=== PATIENT | male | born 1995 | race African-American/Black ===

== ENCOUNTER 2017-09-02 22:34 | Emergency (ER) | payer BC, SELFPAY ==
[2017-09-02 22:35] VITALS: BP 137/76; PULSE 84; RESP 16; TEMP 37.1; O2SAT 98; BMI 31.7
[2017-09-02] MEDS: Diphth,Pertuss(Acell),Tet Vac 0.5 ML Vial IM (23:13)
--- NOTE | 2017-09-02 23:38 | ED.VISSUMM ---
- ER Visit Summary Date of Service: 09/02/17 Chief Complaint: Left third finger laceration History of Present Illness: The patient is a 21 M who cut his left third finger on a knife while doing dishes. He is right-hand dominant. He is unsure of his last tetanus update. Physical Examination: Signs unremarkable. Physical examination significant for left upper extremity which reveals a 2 similar flap laceration over the distal left third finger. He has full range of motion, normal sensation, normal cap refill. Test Results: [] Emergency Department Course and Treatment: Digital block is performed with 3 cc 1% lidocaine. Wound was thoroughly cleansed and irrigated. 5 simple interrupted sutures of 5-0 nylon are placed with good approximation. Wound is cleansed and dressed. Wound care is discussed. Tetanus update is provided. Treatment Plan: [] Disposition: Discharge Impression: Left third finger laceration status post suture This note was generated with [employer] dictation software. It may contain incorrect words, spelling, and punctuation that were not noted in review of the chart prior to signing ED Disposition - Plan for ED Patient: Disposition: Home or Assisted Living Chief Complaint: Laceration Instructions: ED Laceration Hand Referrals: Delphine Baker MD [STAFF PHYSICIAN] - 7 Days for suture removal
[2017-09-03 00:10] VITALS: BP 108/67; PULSE 72; RESP 17; O2SAT 98
--- NOTE | 2017-09-03 00:10 | ED.RN ---
DISCHARGE INSTRUCTIONS GIVEN TO AND REVIEWED WITH PATIENT, PATIENT DENIES QUESTIONS OR CONCERNS AND VOICES UNDERSTANDING OF DISCHARGE INSTRUCTIONS. PT AMBULATES OUT OF ROOM WITHOUT DIFFICULTY.
== END 2017-09-03 00:10 | disposition home or self-care (01) ==
PROVIDERS: Emergency Provider Emergency Medicine
DX: S61.213A Laceration without foreign body of left middle finger without damage to nail, initial encounter (principal); Z23 Encounter for immunization; W29.1XXA Contact with electric knife, initial encounter; Y93.G1 Activity, food preparation and clean up; Y92.000 Kitchen of unspecified non-institutional (private) residence as the place of occurrence of the external cause; Y99.8 Other external cause status
CPT/HCPCS: 12001; 90471; 90715; 99282

== ENCOUNTER 2019-07-17 06:37 | Emergency (ER) | payer OTHER, SELFPAY ==
[2019-07-17 06:37] VITALS: BP 147/90; PULSE 83; RESP 16; TEMP 36.7; O2SAT 100; BMI 27.5
--- NOTE | 2019-07-17 06:45 | CT_ITS ---
STUDY: CT ABDOMEN AND PELVIS WITHOUT CONTRAST REASON FOR EXAM: Male, 23 years old. RT FLANK PAIN, N/V 3 HRS HEAD OF DIGITAL ADVERTISING & INTEGRATION, HX APPENDECTOMY RADIATION DOSAGE (If Supplied By Facility): CTDIvol = ( 6.77 ) mGy, DLP = ( 345.21 ) mGycm TECHNIQUE: Transaxial 2.5 mm images were obtained from the dome of the diaphragm to the symphysis pubis without oral contrast, and without intravenous contrast. Sagittal and coronal images were reconstructed. This examination is limited for the evaluation of gastrointestinal, solid organs and vascular structures due to the lack of intravenous and oral contrast. Individualized dose optimization techniques were used for this CT. COMPARISON: None. FINDINGS: Small amount of calcified nodule in the right lower lobe, image 10.28 cm. Small peripheral left lower lobe nodule 0.2 to 0.3 cm. The visualized portions of the heart are within normal limits. Normal liver. Normal gallbladder and extrahepatic biliary system. Normal spleen. Normal pancreas. Normal bilateral adrenal glands. Mild right hydronephrosis and hydroureter with an obstructing right UVJ calculus of 0.2 cm. Additional small punctate nonobstructing right renal calculi. Left renal pelvis calculus 0.5 x 0.7 x 0.7 cm without obstruction. Question of small peripelvic cysts. No left hydroureter or obstructing ureteral calculus. Normal visualized stomach. Normal small intestine. Normal colon. There are surgical clips in the region of the appendix consistent with a prior appendectomy. Normal abdominal aorta. Normal inferior vena cava. Normal retroperitoneum. Decompressed urinary bladder. Normal visualized prostate gland. Normal abdominal wall. Normal osseous structures. CT/Abdomen/Pelvis without Cont IMPRESSION: Mild right hydronephrosis and hydroureter with an obstructing 0.2 cm right UVJ calculus. Nonobstructing small right renal calculi. Nonobstructing left renal pelvis calculus. Prior appendectomy. Multiple small bilateral pulmonary nodules as outlined above frequently granulomata in patient''s age group. Correlation advised. The?Fleischner Society pulmonary nodule recommendations 2017 guidelines Multiple nodules size: <6 mm * low-risk patients: no routine follow-up * high-risk patients: optional CT at 12 months Electronically Signed: Mariana Higginbotham MD at 7:34 EST , Service support ,
--- NOTE | 2019-07-17 06:46 | ED.VIS.GEN ---
History of Present Illness Chief Complaint: Flank Pain Narrative: Patient is a 23-year-old male who presents with abrupt onset right flank and lower abdominal pain. Symptoms began about 3 hours ago which woke him from sleep. Pain is sharp, pain is severe. Pain radiates to the groin and testicle. No history of prior similar symptoms. He denies any dysuria or urinary urgency. He has not urinated since symptoms began. He has not noted any recent hematuria. He does have a prior history of appendectomy no other abdominal surgeries and denies medical history. Patient does report multiple episodes of nonbloody nonbilious emesis since pain began. No fevers. No diarrhea. Past Medical History - Allergies and Home Meds Allergies/Adverse Reactions: Allergies No Known Allergies Allergy (Verified 07/17/19 06:40) Primary Care Physician: Care Physician,No Primary [Primary Care Provider] - Past Medical History: None Surgical History: appendectomy Smoking Status: Never smoker Review of Systems All systems negative except as indicated General: Denies: Fever Eyes: Denies: Visual changes - bilaterally ENT: Denies: Bilateral ear pain Cardiovascular: Denies: Chest pain Respiratory: Denies: Dyspnea Gastrointestinal: Reports: Abdominal pain, Nausea, Vomiting Genitourinary: Denies: Dysuria, Hematuria Musculoskeletal: Reports: Back pain Skin: Denies: Rash Neurological: Denies: Headache Physical Exam Vital Signs/Narrative: Vital Signs Temp Pulse Resp BP Pulse Ox 07/17/19 06:37 98.1 F 83 16 147/90 H 100 Inital Vital Signs reviewed: Yes General: Acute Distress Head: Normocephalic Eyes: EOMI ENT: Moist mucous membranes Neck: Supple Cardiovascular: Regular rate, Regular rhythm Respiratory: No distress Abdomen: Soft, - - Patient does have right-sided abdominal tenderness, abdomen is soft, no guarding, no rebound Back: Negative for: CVA tenderness Skin: Diaphoresis Neurological: Alert Psychological: Normal affect Diagnostic/Tx/Re-eval 07/17/19 06:45 Abdomen/Pelvis without Cont [CT] Stat Laboratory Results 07/17/19 07/17/19 06:50 06:50 WBC 10.6 RBC 5.78 Hgb 16.7 H Hct 48.1 MCV 83.2 MCH 28.9 MCHC 34.7 RDW Std Deviation 36.8 RDW Coeff of Katelynn 12.1 Plt Count 270 MPV 10.1 Immature Gran % (Auto) 0.300 Neut % (Auto) 73.5 H Lymph % (Auto) 19.1 Hunt % (Auto) 5.9 Eos % (Auto) 0.6 Baso % (Auto) 0.6 Absolute Neuts (auto) 7.8 H Absolute Lymphs (auto) 2.03 Nucleated RBC % 0 Sodium 138 Potassium 3.8 Chloride 105 Carbon Dioxide 29.0 Anion Gap 4 L BUN 8 Creatinine 1.37 H Estim Creat Clear Calc 77.06 Est GFR (MDRD) Af Amer 81 Est GFR (MDRD) Non-Af 67 BUN/Creatinine Ratio 5.8 L Glucose 115 H Calcium 9.2 - Medical Decision Making Patient was treated with IV fluids, Toradol, morphine, Zofran. He has markedly improved on reevaluation. His pain was rated as 9 out of 10 on presentation and he currently rates it as 2 out of 10 which is a tolerable level. Laboratory studies as above. CT of the flank was which on my review appears to show a roughly 3 mm right UVJ calculus. Radiology read pending at the time of this dictation. This will be followed up by the oncoming physician as well as the urinalysis result. Unless there are other findings that need addressed plan will be discharged with outpatient follow-up with urology. Patient was prescribed Flomax. He declined any narcotic prescriptions as he does not like the side effects and we discussed using ibuprofen for pain control at home. ED Disposition - Plan for ED Patient: Disposition: Home or Assisted Living Diagnosis: Ureterolithiasis Instructions: KIDNEY STONE w/ Colic Prescriptions: Tamsulosin HCl [Flomax] 0.4 mg PO DAILY #7 cap Prescription Printed Referrals: Care Physician,No Primary [Primary Care Provider] - Rajesh Verduzco MD [STAFF PHYSICIAN] -
[2019-07-17 06:54] LABS: Absolute Lymphocyte Count 2.03 X10^3/uL (0.83-4.51); Absolute Neutrophil Count 7.8 X10^3/uL (2.0-7.7); Basophil# 0.06 X10^3/uL; Basophil% 0.6 % (0-1); Eosinophil# 0.06 X10^3/uL; Eosinophils% 0.6 % (0-5); Hematocrit 48.1 % (40-54); Hemoglobin 16.7 g/dL (13.0-16.5); Lymphocyte # 2.03 X10^3/ul (4.0); Lymphocyte % 19.1 % (19-41); Mean Corp Hgb Conc 34.7 g/dL (32-36); Mean Corpuscular Hgb 28.9 pg (27.0-32.0); Mean Corpuscular Volume 83.2 fL (80-94); Mean Platelet Vol. 10.1 fl (6.2-12.0); Monocyte# 0.63 X10^3/uL; Monocyte% 5.9 % (0-10); NRBC Flagged by Analyzer 0 % (0-5); Neutrophil # 7.83 X10^3/uL (2.7-7.7); Neutrophil % 73.5 % (47-70); Platelet Count 270 K/mm3 (150-450); RBC Distribution Width CV 12.1 % (11.6-14.6); RBC Distribution Width SD 36.8 fl (35.1-43.9); Red Blood Count 5.78 M/mm3 (4.6-6.2); White Blood Count 10.6 K/mm3 (4.4-11.0)
[2019-07-17] MEDS: Ketorolac 30 MG/ML Syringe IV (07:07)
[2019-07-17] MEDS: Ondansetron 4 MG/2 ML Vial IV (07:07)
[2019-07-17] MEDS: 0.9% Normal Saline 1,000 ML 1000 ML IV (07:07)
[2019-07-17 07:08] LABS: Anion Gap 4 (5-15); BUN 8 mg/dL (7-18); BUN/Creat Ratio 5.8 RATIO (10-20); Calcium,Total 9.2 mg/dL (8.5-10.1); Chloride 105 mmol/L (98-107); Creatinine, Serum 1.37 mg/dL (0.70-1.30); EST Glomerular Filtration Rate 67 mL/min (>60); Est Glom Filt Rate - Afr Amer 81 mL/min (>60); Estimated Creatinine Clearance 77.06 ml/min; Glucose 115 mg/dL (74-106); Potassium 3.8 mmol/L (3.5-5.1); Sodium Level 138 mmol/L (136-145)
[2019-07-17] MEDS: Morphine 4 MG/ML Syringe IV (07:08)
--- NOTE | 2019-07-17 07:48 | ED.DEP ---
ED Disposition - Plan for ED Patient: Disposition: Home or Assisted Living Diagnosis: Ureterolithiasis Instructions: KIDNEY STONE w/ Colic Prescriptions: Tamsulosin HCl [Flomax] 0.4 mg PO DAILY #7 cap Prescription Printed Referrals: Rajesh Verduzco MD [STAFF PHYSICIAN] - Care Physician,No Primary [Primary Care Provider] - Teddy Cain MD [STAFF PHYSICIAN] - As Needed
[2019-07-17 08:01] LABS: Bacteria 0 SEEN /hpf (None Seen); Mucous, Urine 0 SEEN /hpf (<or=2+); Squamous Epithelial Cells - UA 0 SEEN /hpf (0-5)
[2019-07-17 08:09] LABS: Color, Urine Yellow (Yellow); Glucose, Dipstick Normal (Normal); Ketone-Dipstick 5 mg/dl (Negative); Leukocyte Esterase-Dipstick Negative /ul (Negative); Nitrite-Dipstick Negative (Negative); Occult Blood-Urine 250 /ul (Negative); Protein-Dipstick 30 mg/dl (Negative); Specific Gravity, Urine 1.025 (1.002-1.030); Urine Bilirubin Dipstick Negative (Negative); Urine Clarity Clear (Clear); Urine Urobilinogen Normal (Normal)
[2019-07-17 08:22] LABS: Red Blood Cells-Urine 25-50 SEEN /hpf (0-5); White Blood Cells 0-5 SEEN /hpf (0-5)
--- NOTE | 2019-07-17 08:24 | ED.VISSUMM ---
- ER Visit Summary Date of Service: 07/17/19 Chief Complaint: [Addendum to initial dictation by Dr. Luis Miguel Wade] History of Present Illness: The patient is a 23 M [presented with right-sided flank pain. Patient was found to have a kidney stone. Patient had labs and a CT scan of the abdomen pelvis and care patient was turned over to me awaiting CT results. Patient also awaiting urine results.] Physical Examination: [HEENT-PERRLA, EOMI. Cranial nerves II through XII grossly intact. TMs clear. Mucous membranes moist. No adenopathy. Cardiovascular-regular rate and rhythm without murmur or ectopy Lungs-clear to auscultation, chest wall stable without crepitus or subcu emphysema Abdomen-normoactive bowel sounds, soft. Patient has some mild right lower quadrant tenderness on palpation. There is no rebound, rigidity, or pedal signs. Extremities-intact ?4, normal range of motion, normal pulses, atraumatic] Test Results: [CT scan showed a 2 mm stone at the right UVJ with hydronephrosis and hydroureter. Patient also had a punctate stone within the right kidney as well as a larger stone in the left kidney. Patient also was noted to incidentally have granulomas in both lung bases.] Urinalysis showed blood but no evidence of infection. Emergency Department Course and Treatment: [] Treatment Plan: [Patient will follow up with urology and also will be referred to primary care physician show operations supervisor for no doc. Discharge instructions and medications written for by Dr. Wade.] Patient will follow-up with primary care physician regarding the granulomatous findings on CT of the lung bases however being that they are small and patient is not a smoker and is considered low risk may not need significant follow-up for these findings based on the size of the granulomas being less than 6 mm. Disposition: [Discharged home in stable condition.] Impression: [Right-sided kidney stone with colic] This note was generated with [employer] dictation software. It may contain incorrect words, spelling, and punctuation that were not noted in review of the chart prior to signing ED Disposition - Plan for ED Patient: Disposition: Home or Assisted Living Diagnosis: Ureterolithiasis Instructions: KIDNEY STONE w/ Colic Prescriptions: Tamsulosin HCl [Flomax] 0.4 mg PO DAILY #7 cap Prescription Printed Referrals: Teddy Cain MD [STAFF PHYSICIAN] - As Needed Rajesh Verduzco MD [STAFF PHYSICIAN] - Care Physician,No Primary [Primary Care Provider] -
--- NOTE | 2019-07-17 08:28 | ED.DEP ---
ED Disposition - Plan for ED Patient: Disposition: Home or Assisted Living Diagnosis: Ureterolithiasis Instructions: KIDNEY STONE w/ Colic Prescriptions: Tamsulosin HCl [Flomax] 0.4 mg PO DAILY #7 cap Prescription Printed Oxycodone HCl/Acetaminophen [Percocet 5/325] 1 tab PO Q6H PRN PRN 3 Days #12 tab PRN Reason: Pain Prescription Printed Referrals: Teddy Cain MD [STAFF PHYSICIAN] - As Needed Rajesh Verduzco MD [STAFF PHYSICIAN] - Care Physician,No Primary [Primary Care Provider] -
[2019-07-17 08:37] VITALS: PULSE 86; RESP 17; O2SAT 100
== END 2019-07-17 08:39 | disposition home or self-care (01) ==
PROVIDERS: Emergency Provider Emergency Medicine
DX: N13.2 Hydronephrosis with renal and ureteral calculous obstruction (principal)
CPT/HCPCS: 74176; 80048; 81001; 85025; 96361; 96374; 96375; 99283; J7030; A4216; J2405

== ENCOUNTER → 2020-02-03 | Outpatient (CLI) | payer OTHER, SELFPAY ==
--- NOTE | 2020-02-03 13:40 | RAD_ITS ---
STUDY: X-RAY - ABDOMEN/PELVIS REASON FOR EXAM: Male, 24 years old. left sided kidney stone TECHNIQUE: 1 view COMPARISON: Prior abdomen and pelvic CT exam of 07/17/2019 FINDINGS: Normal visualized lung bases. There is an unremarkable bowel gas pattern. There is no demonstrated free abdominal air. There is a 7.4 x 7.4 mm left renal calcification which occurs across from the superior endplate of L2 which is the same exact location as on the prior exam of 07/17/2019. Multiple phleboliths in the pelvis. The prior calculus of the distal right ureter is not visualized. Normal visualized osseous structures. RAD/Abdomen Single View IMPRESSION: 7 x 7 mm left renal calcification appearing to be similar in size in the same position as on the prior CT exam of 07/17/2019. No additional visible renal or ureteral stones. Electronically Signed: Tracee Krause MD at 20:28 EDT , Service support ,
== END | disposition home or self-care (01) ==
LOC: RAD 13:36
PROVIDERS: Referring Provider Urology; Visit Provider Urology
DX: N20.0 Calculus of kidney (principal)
CPT/HCPCS: 74018

== ENCOUNTER → 2020-02-04 | Outpatient (CLI) | payer OTHER, SELFPAY | END | disposition home or self-care (01) | LOC: MTDU 17:12 | PROVIDERS: Referring Provider Urology; Visit Provider Urology | DX: Z11.59 Encounter for screening for other viral diseases (principal) | CPT/HCPCS: 87635; C9803; U0003 ==

== ENCOUNTER 2020-02-16 11:18 | Day surgery (SDC) | payer OTHER, SELFPAY ==
[2020-02-16] VITALS (7 sets, daily range): BP systolic 104–132; BP diastolic 48–91; PULSE 79–92; RESP 16–18; TEMP 36.1–36.9; O2SAT 98–100; BMI 31.3
[2020-02-16] MEDS: Lactated Ringers 1,000 ML 100 ML IV ×2 (11:47→16:04)
[2020-02-16] MEDS: Cefazolin 2 GM in 0.9% Normal Saline 100 ML IV (14:20)
--- NOTE | 2020-02-16 14:20 | PCM.HP.STD ---
History of Present Illness Date of Admission: 02/16/20 Chief Complaint: Left renal calculi The patient is a 24 year old male with a 7 mm stone in the left renal pelvis he is passed a prior stone. Today presents for treatment of the stone. Past Medical History Allergies No Known Allergies Allergy (Verified 02/16/20 11:32) Home Medications: Ambulatory Orders Medication Instructions Recorded NK 02/10/20 Surgical History: appendectomy Smoking Status: Never smoker Tobacco Use: Non-smoker Review of Systems Constitutional: Denies: Chills, Fever, Weight Change HEENT: Denies: Head Aches, Sinus Congestion, Sinus Drainage Cardiovascular: Denies: Chest Pain, Palpitations Respiratory: Denies: Cough, Shortness of breath at rest, Sputum production Gastrointestinal: Denies: Abdominal Pain, Nausea, Vomiting Genitourinary: Denies: Dysuria Musculoskeletal: Denies: Joint Pain, Joint Tenderness Skin: Denies: Rash, Wounds Neurological: Denies: Numbness, Tingling, Focal weakness Psychiatric: Denies: Anxiety, Depression, Homicidal Ideations, Suicidal Ideations Hematologic/ Lymphatic: Denies: Easy Bruising, Easy Bleeding VTE Information - Inpt Only VTE Present on Admission: No - Physical Exam Vitals/I&O's: Vital Signs Temp Pulse Resp BP Pulse Ox 98.4 F 79 18 132/68 H 99 02/16/20 11:35 02/16/20 11:35 02/16/20 11:35 02/16/20 11:35 02/16/20 11:35 Oxygen Delivery Method Room Air Weight: 90.8 kg Body Mass Index (BMI) 31.3 General: Alert, Oriented x3, Cooperative HEENT: Atraumatic, PERRLA, EOMI, Normocephalic Neck: Supple, No JVD, Negative Carotid Bruits Lungs: Clear to auscultation, Normal air movement Cardiovascular: Regular rate, No murmurs Abdomen: Bowel Sounds Present, Soft, Non Tender Extremities: No edema, Capillary Refill Less than 3 Seconds Skin: No rashes, No breakdown Musculoskeletal: No Tenderness to Palpation of Joints or Extremities Neurological: Cranial nerves II-XII grossly intact Psych/Mental Status: Normal Affect, Appropriate Current Medications Lactated Ringer's () 1,000 mls @ 100 mls/hr IV .Q10H STACY Last Admin: 09/23/20 11:47 Dose: 100 mls/hr Documented by: Assessment/Plan Plan to proceed with shockwave lithotripsy of the left renal calculi.
--- NOTE | 2020-02-16 14:23 | PCM.DC.URO ---
Discharge Diet: No Restrictions Discharge Activity: Return to Normal Activity, May Not Drive - for 2 days. Additional Activity Instructions:: Please be aware that pain medications may cause nausea. You should typically eat light foods as you take your pain medication. Pain medication may cause constipation, if this is a problem for you, please discuss with your doctor. Allergies/Adverse Reactions: Allergies No Known Allergies Allergy (Verified 02/16/20 11:32) Medications to take at Discharge Hydrocodone/Acetaminophen [Bogard 5-325 Tablet] 1 each PO Q4H PRN PRN 5 Days #14 tablet 02/16/20 The following prescriptions were given: Hydrocodone/Acetaminophen [Bogard 5-325 Tablet] 1 each PO Q4H PRN PRN 5 Days #14 tablet PRN Reason: Pain Score 1-10/10 Transmission Status: Sent to [facility] Primary Care Physician: Care Physician,No Primary [Primary Care Provider] - Test Results: Test results from this visit will be discussed in further detail at your follow-up appointment, if applicable. Please Follow Up With: Rajesh Verduzco MD When: in 2 weeks, please call to make an appointment.
--- NOTE | 2020-02-16 15:18 | PCM.OPRPT ---
Report of Operation Date of Procedure: 02/16/20 Pre-Operative Diagnosis: Left renal calculi Post-Operative Diagnosis: Same Surgery/Procedure Performed:: Left extracorporeal shockwave lithotripsy Description of Surgical Findings:: 24-year-old male with a stone in the left kidney presents today for treatment with shockwave lithotripsy. Patient was taken back to the operating room after smooth induction of general anesthesia we found the stone in the left renal pelvis we then proceeded with shockwave treatment of the stone versus we lined the stone up in the focal point of the shockwave machine and then we started with shockwave lithotripsy delivering energy to the stone at a rate of 90/min and between 5 to 7 kV. At the end of the treatment cycle 3000 blasts were given to the stone and the stone broke up really well at this point after successfully breaking up the stone little tiny pieces we decided not to leave a stent patient anesthetic was reversed he was taken back to PACU good condition we will see him back in a few weeks with an x-ray. Type of Anesthesia:: General Drains: none - Admit VTE Documentation VTE Present on Admission: No VTE Mechan Device Prophylaxis: SCD's
[2020-02-16] MEDS: Ketorolac 15 MG/ML Vial IV (15:53)
== END 2020-02-16 17:29 | disposition home or self-care (01) ==
LOC: SDC 11:18 → AC 11:19
PROVIDERS: Anesthesiology; Referring Provider Urology; Visit Provider Urology
PROC: (CPT 50590; principal; 2020-02-16 13:05)
DX: N20.0 Calculus of kidney (principal); Z87.442 Personal history of urinary calculi; Z11.59 Encounter for screening for other viral diseases
CPT/HCPCS: 00873; 50590; 87635; C9803; J7120; J2405; U0003

== ENCOUNTER → 2020-03-09 | Outpatient (CLI) | payer OTHER, SELFPAY ==
[2020-02-16 11:35] VITALS: BMI 31.3
--- NOTE | 2020-03-09 16:15 | RAD_ITS ---
STUDY: X-RAY - ABDOMEN/PELVIS REASON FOR EXAM: Male, 24 years old. KIDNEY STONE TECHNIQUE: Single AP view of the abdomen / pelvis. COMPARISON: 02/03/2020 FINDINGS: Normal visualized lung bases. There is an unremarkable bowel gas pattern. The visualized liver, spleen and kidneys are grossly normal in size and morphology. Normal soft tissue structures. Normal visualized osseous structures. RAD/Abdomen Single View IMPRESSION: Normal x-ray examination of the abdomen and pelvis. Electronically Signed: Efren Rodriguez MD at 9:45 EDT Tel , Service support ,
== END | disposition home or self-care (01) ==
LOC: RAD 16:13
PROVIDERS: Referring Provider Urology; Visit Provider Urology
DX: N20.0 Calculus of kidney (principal)
CPT/HCPCS: 74018